=== PATIENT | male | born 1995 | race Two or more races ===

== ENCOUNTER 2016-08-21 00:23 | Emergency (ER) | payer OTHER ==
[2016-08-21 00:28] VITALS: BP 113/64; PULSE 74; RESP 16; TEMP 98.2; O2SAT 98
--- NOTE | 2016-08-21 01:05 | EDPHY ---
H & P Stated Complaint: L foot/toes injured playing soccer Time Seen by Provider: 08/21/16 00:55 HPI/ROS: CHIEF COMPLAINT: Toe pain HISTORY OF PRESENT ILLNESS: Patient is a 20-year-old man who comes to the emergency department complaining of pain in the 2nd toe on his left foot. He states that he is playing soccer and noticed afterwards that he had pain there. He has been able to ambulate. He denies ankle or leg injury otherwise. No significant past medical history. REVIEW OF SYSTEMS: Constitutional: denies: chills, fever, recent illness, recent injury EENTM: denies: blurred vision, double vision, nose congestion Respiratory: denies: cough, shortness of breath Cardiac: denies: chest pain, irregular heart rate, lightheadedness, palpitations Gastrointestinal/Abdominal: denies: abdominal pain, diarrhea, nausea, vomiting, blood streaked stools Genitourinary: denies: dysuria, frequency, hematuria, pain Musculoskeletal: See HPI Skin: denies: lesions, rash, jaundice, bruising Neurological: denies: headache, numbness, paresthesia, tingling, dizziness, weakness Hematologic/Lymphatic: denies: blood clots, easy bleeding, easy bruising Immunologic/allergic: denies: HIV/AIDS, transplant EXAM: GENERAL: Well-appearing, well-nourished and in no acute distress. HEAD: Atraumatic, normocephalic. EYES: Pupils equal round and reactive to light, extraocular movements intact, sclera anicteric, conjunctiva are normal. ENT: TMs normal, nares patent, oropharynx clear without exudates. Moist mucous membranes. NECK: Normal range of motion, supple without lymphadenopathy or JVD. LUNGS: Breath sounds clear to auscultation bilaterally and equal. No wheezes rales or rhonchi. HEART: Regular rate and rhythm without murmurs, rubs or gallops. ABDOMEN: Soft, nontender, normoactive bowel sounds. No guarding, no rebound. No masses appreciated. BACK: No CVA tenderness, no spinal tenderness, step-offs or deformities EXTREMITIES: Left 2nd toe with mild swelling and bruising around the proximal phalanx. Normal range of motion. Normal sensation NEUROLOGICAL: Cranial nerves II through XII grossly intact. Normal speech, normal gait. 5/5 strength, normal movement in all extremities, normal sensation PSYCH: Normal mood, normal affect. SKIN: Warm, dry, normal turgor, no visible rashes or lesions. Source: Patient Exam Limitations: No limitations - Personal History Current Tetanus/Diphtheria Vaccine: Yes Tetanus Vaccine Date: < 10 years - Medical/Surgical History Hx Asthma: Yes Hx Chronic Respiratory Disease: No Hx Diabetes: No Hx Cardiac Disease: No Hx Renal Disease: No Hx Cirrhosis: No Hx Alcoholism: No Hx HIV/AIDS: No Hx Splenectomy or Spleen Trauma: No Other PMH: PMHx: Head injury. PSHx: denies - Family History Significant Family History: No pertinent family hx - Social History Smoking Status: Current every day smoker Alcohol Use: Sober Drug Use: None Constitutional: Initial Vital Signs Temperature (C) 36.8 C 08/21/16 00:25 Heart Rate 74 08/21/16 00:25 Respiratory Rate 16 08/21/16 00:25 Blood Pressure 113/64 08/21/16 00:25 O2 Sat (%) 98 08/21/16 00:25 O2 Delivery Mode Room Air Allergies/Adverse Reactions: No Known Allergies Allergy (Verified 02/25/16 02:57) Home Medications: Medication Instructions Recorded NK [No Known Home Meds] 02/25/16 Medical Decision Making - Diagnostics Imaging Results: X-ray: Foot x-ray was obtained. I viewed the images myself on the PACS system. My interpretation of the images is: Negative. The radiologist interpretation is [pending]. Imaging: I viewed and interpreted images myself Procedures: Procedure: Splint placement. A postop shoe splint was applied. After application of the splint I returned and re-examined the patient. The splint was adequately immobilizing the joint and distal to the splint the patient's circulation and sensation was intact. ED Course/Re-evaluation: We discussed the x-ray results. Patient is relieved. He was placed in a postop shoe and we discussed pain control and rest. Differential Diagnosis: Partial list of the Differential diagnosis considered include but were not limited to; foot fracture, contusion and although unlikely based on the history and physical exam, I also considered nerve injury, vascular injury, tendon injury. I discussed these differential diagnoses and the plan with the patient as well as the usual and expected course. The patient understands that the diagnosis is provisional and that in medicine we are not always correct and that further workup is often warranted. Usual and customary warnings were given. All of the patient's questions were answered. The patient was instructed to return to the emergency department should the symptoms at all worsen or return, otherwise to followup with the physician as we discussed. Departure - Departure Disposition: Home, Routine, Self-Care Clinical Impression: Contusion, toe Qualifiers: Encounter type: initial encounter Toe: lesser toe Damage to nail status: without damage Laterality: left Qualified Code(s): S90.122A - Contusion of left lesser toe(s) without damage to nail, initial encounter Condition: Fair Instructions: Foot Contusion (ED) Referrals: NONE *PRIMARY CARE P,. [Primary Care Provider] - As per Instructions Missy Rosado DO [Doctor of Osteopathy] - As per Instructions
== END 2016-08-21 01:18 | disposition home or self-care (01) ==
DX: S90.122A Contusion of left lesser toe(s) without damage to nail, initial encounter (principal); J45.909 Unspecified asthma, uncomplicated; F17.200 Nicotine dependence, unspecified, uncomplicated; X58.XXXA Exposure to other specified factors, initial encounter; Y99.8 Other external cause status; Y93.66 Activity, soccer
CPT/HCPCS: L3260

== ENCOUNTER 2016-09-25 22:10 | Emergency (ER) | payer OTHER ==
[2016-09-25 22:15] VITALS: RESP 16; TEMP 98.8
[2016-09-25] MEDS ORDERED: PROPARACAINE 0.5% 15 ML OPHT DROP ONE (22:39)
[2016-09-25] MEDS ORDERED: FLUORESCEIN SODIUM 1 MG STRIP OP ONE (22:39)
--- NOTE | 2016-09-25 22:55 | EDPHY ---
H & P Stated Complaint: L eye irritation; kidney pain Time Seen by Provider: 09/25/16 22:39 HPI/ROS: HPI The patient presents with left eye pain which has been present since 3:00 a.m. this morning. He was out with friends and went to a store with cats. [place] as if something got into his left eye. He has had pain ever since which is worse when he opens his eye and improved when he closes it. It feels like a burning sort of a pain. His eye feels itchy and he has had tearing of the eye which is clear. He has noticed some redness of his eye but has not had any changes in his vision or photophobia. He has history of similar about 2 years ago which improved on its own. He is also complaining of left-sided flank pain which began after drinking a lot of alcohol. He had limited urine output for few days, however now feels much better. He does not have any dysuria, hematuria. REVIEW OF SYSTEMS Constitutional: No fever, no chills. Eyes: No discharge. ENT: No sore throat. Cardiovascular: No chest pain, no palpitations. Respiratory: No cough, no shortness of breath. Gastrointestinal: No abdominal pain, no vomiting. Genitourinary: No hematuria. Musculoskeletal: No back pain. Skin: No rashes. Neurological: No headache. PMHx: Healthy Soc Hx: College student PHYSICAL General Appearance: Alert, no distress Eyes: Pupils equal and round no pallor or injection EYE EXAM Visual Acuity: noted from Nurse's notes. Pupils: equal round and reactive to light EOMI Skin: no proptosis, no periorbital erythema or swelling, no vesicles Upper inner eyelid is slightly erythematous Conjunctivae: Slightly injected, no discharge Cornea: exam with fluoroscein shows no staining Anterior chamber:normal, no hyphema or hypopyon ENT, Mouth: Mucous membranes moist Respiratory: There are no retractions, lungs are clear to auscultation Cardiovascular: Regular rate and rhythm Gastrointestinal: Abdomen is soft and non-tender, no masses, bowel sounds normal Neurological: A&O, moves all extremities Skin: Warm and dry, no rashes Musculoskeletal: Neck is supple non tender Extremities: symmetrical, full range of motion Psychiatric: Patient is oriented X 3, there is no agitation Source: Patient Exam Limitations: No limitations - Personal History Current Tetanus/Diphtheria Vaccine: Yes Tetanus Vaccine Date: < 10 years - Medical/Surgical History Hx Asthma: Yes Hx Chronic Respiratory Disease: No Hx Diabetes: No Hx Cardiac Disease: No Hx Renal Disease: No Hx Cirrhosis: No Hx Alcoholism: No Hx HIV/AIDS: No Hx Splenectomy or Spleen Trauma: No Other PMH: PMHx: Head injury. PSHx: denies - Social History Smoking Status: Current every day smoker Constitutional: Initial Vital Signs Temperature (C) 37.1 C 09/25/16 22:13 Heart Rate 88 09/25/16 22:13 Respiratory Rate 16 09/25/16 22:13 Blood Pressure 111/62 09/25/16 22:13 O2 Sat (%) 97 09/25/16 22:13 O2 Delivery Mode Room Air Allergies/Adverse Reactions: No Known Allergies Allergy (Verified 02/25/16 02:57) Home Medications: Medication Instructions Recorded Polyvinyl Alcohol [Artificial 15 ml OP QID #1 drops 09/25/16 Tears] Medical Decision Making Differential Diagnosis: This is a 20-year-old male who presents with left eye pain for the last 1 day. He thinks he is allergic to cats and was exposed. On exam, he has normal visual acuity, no visual changes, conjunctiva are injected. Differential diagnosis includes acute conjunctivitis, allergic verses less likely bacterial given no concerning drainage. Iritis less likely given normal anterior chamber. Corneal abrasion less likely given no fluorescein staining. I plan to treat him as allergic conjunctivitis with artificial tears, cool compresses, ophthalmology follow-up as needed. Patient also is complaining of left-sided flank pain and is concerned about his kidney. He is able to urinate without difficulty, however recently had a alcohol drinking binge. Plan to check UA. The patient was unable to provide a urine specimen while in the emergency room. I explained to him we cannot evaluate his kidney pain without this. He said he would still like to go. I plan to discharge him and he is to return if he has continued pain. Departure - Departure Disposition: Home, Routine, Self-Care Clinical Impression: Conjunctivitis Condition: Good Instructions: Conjunctivitis (ED) Additional Instructions: It appears your eye is bothering you because of allergies. You should use cold compresses on your eye several times a day. You should not rub your eyes. You can use the artificial tears as needed to help. I have given you a referral for the community health specialist. You should call for an appointment if you are not better in 1-2 days. Referrals: Alexandro Kirby MD [Medical Doctor] - As per Instructions Prescriptions: Polyvinyl Alcohol [Artificial Tears] 15 ml OP QID #1 drops
[2016-09-25 23:51] VITALS: BP 110/80; PULSE 81; O2SAT 95
== END 2016-09-25 23:51 | disposition home or self-care (01) ==
DX: H10.9 Unspecified conjunctivitis (principal); F17.200 Nicotine dependence, unspecified, uncomplicated; J45.909 Unspecified asthma, uncomplicated

== ENCOUNTER 2016-10-17 23:01 | Emergency (ER) | payer OTHER ==
[2016-10-17 23:44] LABS: COLOR YELLOW; LEUKOCYTE ESTERASE,URINE NEGATIVE (NEGATIVE); NITRITE,URINE NEGATIVE (NEGATIVE)
[2016-10-17 23:49] LABS: BACTERIA TRACE /hpf (NONE SEEN); MUCUS 4+ /lpf (NONE-1+)
[2016-10-18 00:40] LABS: ANION GAP 12 mEq/L (8-16); CALCIUM 10.2 mg/dL (8.5-10.4); CARBON DIOXIDE 23 mEq/l (22-31); CHLORIDE 109 mEq/L (97-110); CREATININE 0.9 mg/dL (0.7-1.3); GLOMERULAR FILTRATION RATE > 60; GLUCOSE 81 mg/dL (70-100); POTASSIUM 4.1 mEq/L (3.5-5.2); SODIUM 144 mEq/L (134-144)
[2016-10-18 00:54] LABS: % IMMATURE GRANULYOCYTES 0.3 % (0.0-1.1); ABSOLUTE IMMATURE GRANULOCYTES 0.03 10^3/uL (0.00-0.10); ADD DIFF? NO; ADD MORPH? NO; ADD SCAN? NO; ATYPICAL LYMPHOCYTE FLAG 0 (0-99); FRAGMENT RBC FLAG 0 (0-99); HEMATOCRIT 50.6 % (40.0-51.0); HEMOGLOBIN 17.4 g/dL (13.7-17.5); LEFT SHIFT FLG 0 (0-99); LIPEMIA HEMOLYSIS FLAG 90 (0-99); MEAN CELL HEMOGLOBIN 30.8 pg (27.9-34.1); MEAN CELL HEMOGLOBIN CONCENTR. 34.4 g/dL (32.4-36.7); MEAN CELL VOLUME 89.6 fL (81.5-99.8); MEAN PLATELET VOLUME 9.8 fL (8.7-11.7); PLATELET CLUMPS FLAG 0 (0-99); PLATELET COUNT 333 10^3/uL (150-400); RED BLOOD CELL COUNT 5.65 10^6/uL (4.40-6.38); RED CELL DISTRIBUTION WIDTH 12.7 % (11.5-15.2)
--- NOTE | 2016-10-18 01:47 | EDPHY ---
H & P Stated Complaint: RLQ abd pain x3 days Time Seen by Provider: 10/18/16 01:31 HPI/ROS: HPI The patient presents with right-sided groin and right lower quadrant pain which has been present for the last 3 days which is worse with walking and improved with rest. It does not radiate. It is sharp in nature. He does not have any associated diarrhea, constipation, fever or chills. He does report 1 episode of vomiting this morning. He does not have any testicular pain or penile pain or discharge.. REVIEW OF SYSTEMS Constitutional: No fever, no chills. Eyes: No discharge. ENT: No sore throat. Cardiovascular: No chest pain, no palpitations. Respiratory: No cough, no shortness of breath. Gastrointestinal: See HPI Genitourinary: No hematuria. Musculoskeletal: No back pain. Skin: No rashes. Neurological: No headache. PMHx: Asthma Soc Hx: College student PHYSICAL General Appearance: Alert, no distress Eyes: Pupils equal and round no pallor or injection ENT, Mouth: Mucous membranes moist Respiratory: There are no retractions, lungs are clear to auscultation Cardiovascular: Regular rate and rhythm Gastrointestinal: Abdomen is soft and non-tender, no masses, bowel sounds normal : Small defect felt in right inguinal region without any tenderness, testicles nontender bilaterally Neurological: A&O, moves all extremities Skin: Warm and dry, no rashes Musculoskeletal: Neck is supple non tender Extremities: symmetrical, full range of motion Psychiatric: Patient is oriented X 3, there is no agitation Source: Patient Exam Limitations: No limitations - Personal History Current Tetanus Diphtheria and Acellular Pertussis (TDAP): Unsure Tetanus Vaccine Date: < 10 years - Medical/Surgical History Hx Asthma: Yes Hx Chronic Respiratory Disease: No Hx Diabetes: No Hx Cardiac Disease: No Hx Renal Disease: No Hx Cirrhosis: No Hx Alcoholism: No Hx HIV/AIDS: No Hx Splenectomy or Spleen Trauma: No Other PMH: asthma - Social History Smoking Status: Current every day smoker Constitutional: Initial Vital Signs Temperature (C) 36.8 C 10/17/16 23:03 Heart Rate 92 10/17/16 23:03 Respiratory Rate 18 10/17/16 23:03 Blood Pressure 122/79 H 10/17/16 23:03 O2 Sat (%) 98 10/17/16 23:03 O2 Delivery Mode Room Air Allergies/Adverse Reactions: No Known Allergies Allergy (Verified 02/25/16 02:57) Home Medications: Medication Instructions Recorded Albuterol 10/17/16 Medical Decision Making Differential Diagnosis: This is a 21-year-old male who is healthy who comes in with 3 days of right lower quadrant and right groin pain it is intermittent. No prior history of similar. No real associated symptoms. On exam, he does not have any right lower quadrant tenderness. He does have some tenderness in his inguinal region without any lymphadenopathy. exam does reveal a very small defect in his inguinal canal concerning for inguinal hernia. I will refer him to General surgery as an outpatient for further evaluation. I do not believe he needs workup for appendicitis at this time given no tenderness in the right lower quadrant. Differential diagnosis includes inguinal hernia, incarcerated inguinal hernia, appendicitis, inguinal lymphadenopathy. - Data Points Laboratory Results: Laboratory Results 10/17/16 23:20 10/17/16 23:20 10/17/16 10/17/16 10/17/16 23:30 23:20 23:20 WBC 10.19 10^3/uL H 10^3/uL (3.80-9.50) RBC 5.65 10^6/uL 10^6/uL (4.40-6.38) Hgb 17.4 g/dL g/dL (13.7-17.5) Hct 50.6 % % (40.0-51.0) MCV 89.6 fL fL (81.5-99.8) MCH 30.8 pg pg (27.9-34.1) MCHC 34.4 g/dL g/dL (32.4-36.7) RDW 12.7 % % (11.5-15.2) Plt Count 333 10^3/uL 10^3/uL (150-400) MPV 9.8 fL fL (8.7-11.7) Neut % (Auto) 60.4 % % (39.3-74.2) Lymph % (Auto) 30.4 % % (15.0-45.0) [place] % (Auto) 6.9 % % (4.5-13.0) Eos % (Auto) 1.3 % % (0.6-7.6) Baso % (Auto) 0.7 % % (0.3-1.7) Nucleat RBC Rel Count 0.0 % % (0.0-0.2) Absolute Neuts (auto) 6.16 10^3/uL 10^3/uL (1.70-6.50) Absolute Lymphs (auto) 3.10 10^3/uL H 10^3/uL (1.00-3.00) Absolute Monos (auto) 0.70 10^3/uL 10^3/uL (0.30-0.80) Absolute Eos (auto) 0.13 10^3/uL 10^3/uL (0.03-0.40) Absolute Basos (auto) 0.07 10^3/uL 10^3/uL (0.02-0.10) Absolute Nucleated RBC 0.00 10^3/uL 10^3/uL (0-0.01) Immature Gran % 0.3 % % (0.0-1.1) Immature Gran # 0.03 10^3/uL 10^3/uL (0.00-0.10) Sodium 144 mEq/L mEq/L (134-144) Potassium 4.1 mEq/L mEq/L (3.5-5.2) Chloride 109 mEq/L mEq/L (97-110) Carbon Dioxide 23 mEq/l mEq/l (22-31) Anion Gap 12 mEq/L mEq/L (8-16) BUN 8 mg/dL mg/dL (7-23) Creatinine 0.9 mg/dL mg/dL (0.7-1.3) Estimated GFR > 60 Glucose 81 mg/dL mg/dL (70-100) Calcium 10.2 mg/dL mg/dL (8.5-10.4) Urine Color YELLOW Urine Appearance CLEAR Urine pH 5.0 (5.0-7.5) Ur Specific [place] 1.024 (1.002-1.030) Urine Protein 1+ H (NEGATIVE) Urine Ketones NEGATIVE (NEGATIVE) Urine Blood NEGATIVE (NEGATIVE) Urine Nitrate NEGATIVE (NEGATIVE) Urine Bilirubin NEGATIVE (NEGATIVE) Urine Urobilinogen NEGATIVE EU EU (0.2-1.0) Ur Leukocyte Esterase NEGATIVE (NEGATIVE) Urine RBC 1-3 /hpf /hpf (0-3) Urine WBC 1-3 /hpf /hpf (0-3) Ur Epithelial Cells TRACE /lpf /lpf (NONE-1+) Urine Bacteria TRACE /hpf H /hpf (NONE SEEN) Urine Mucus 4+ /lpf H /lpf (NONE-1+) Urine Sperm PRESENT /hpf /hpf (NONE SEEN) Urine Glucose NEGATIVE (NEGATIVE) Departure - Departure Disposition: Home, Routine, Self-Care Clinical Impression: RLQ abdominal pain Condition: Good Instructions: Acute Abdominal Pain (ED) Additional Instructions: The cause of your abdominal pain is not entirely clear. You should return to the emergency room if you are worse in any way, develops vomiting, fever, more pain, because you may have early appendicitis. Your pain could also be coming from a small inguinal hernia. Because of this, I have given you the information for Dr. Olivia for surgical follow-up. Referrals: Teofilo Olivia MD [Medical Doctor] - As per Instructions
[2016-10-18 01:54] VITALS: BP 121/72; PULSE 77; RESP 16; TEMP 98.1; O2SAT 97
== END 2016-10-18 01:55 | disposition home or self-care (01) ==
DX: R10.31 Right lower quadrant pain (principal); J45.909 Unspecified asthma, uncomplicated; F17.200 Nicotine dependence, unspecified, uncomplicated

== ENCOUNTER 2017-05-03 07:10 | Emergency (ER) | payer OTHER ==
[2017-05-03 07:15] VITALS: BP 139/74; PULSE 95; RESP 16; TEMP 98.6; O2SAT 96
--- NOTE | 2017-05-03 07:26 | EDPHY ---
H & P Stated Complaint: injury to right wrist and thumb Time Seen by Provider: 05/03/17 07:16 HPI/ROS: CHIEF COMPLAINT: Right wrist pain HISTORY OF PRESENT ILLNESS: The patient presents to the ED with complaints of right wrist pain following a mechanical fall that occurred last night. The patient complains of pain in the snuffbox. He denies any associated numbness or weakness. The patient denies any additional injury. He has moderate pain worsened with palpation and attempted movement. REVIEW OF SYSTEMS: A comprehensive 10 point review of systems is otherwise negative aside from elements mentioned in the history of present illness. Source: Patient Exam Limitations: No limitations - Personal History Current Tetanus Diphtheria and Acellular Pertussis (TDAP): Yes Tetanus Vaccine Date: < 10 years - Medical/Surgical History Hx Asthma: Yes Hx Chronic Respiratory Disease: No Hx Diabetes: No Hx Cardiac Disease: No Hx Renal Disease: No Hx Cirrhosis: No Hx Alcoholism: No Hx HIV/AIDS: No Hx Splenectomy or Spleen Trauma: No Other PMH: asthma - Social History Smoking Status: Current every day smoker - Physical Exam Exam: General Appearance: Alert, no distress Neck: Nontender, trachea midline Respiratory: No chest wall tender, subcutaneous air, lungs clear bilaterally Cardiovascular: Regular rate and rhythm Abdomen: Abdomen is soft and nontender, pelvis stable Skin: No lacerations, No abrasion Extremities: Tenderness to palpation right anatomic snuffbox Neurological: 5/5 strength noted in the right upper extremity, normal sensory exam Constitutional: Initial Vital Signs Temperature (C) 37 C 05/03/17 07:11 Heart Rate 95 05/03/17 07:11 Respiratory Rate 16 05/03/17 07:11 Blood Pressure 139/74 H 05/03/17 07:11 O2 Sat (%) 96 05/03/17 07:11 O2 Delivery Mode Room Air Allergies/Adverse Reactions: No Known Allergies Allergy (Verified 02/25/16 02:57) Home Medications: Medication Instructions Recorded Albuterol 10/17/16 Medical Decision Making - Diagnostics Imaging Results: Right wrist x-ray: Images reviewed by myself, negative for acute fracture ED Course/Re-evaluation: The patient presents to the ED with right wrist pain and tenderness in the anatomic snuffbox. He has been placed in a thumb spica splint. He has been instructed to follow up with Orthopedic surgery for any persistent pain or tenderness past 3-5 days as this may be the sign of an undiagnosed fracture. Differential Diagnosis: Differential diagnosis considered includes fracture, sprain, dislocation Departure - Departure Disposition: Home, Routine, Self-Care Clinical Impression: Right wrist sprain Condition: Good Instructions: Musculoskeletal Pain (ED) Additional Instructions: 1. Wear wrist splint as needed for comfort. 2. Take Ibuprofen or Motrin 600 mg by mouth three times a day. 3. Please follow up with the orthopedic surgeon you have been referred to for any persistent wrist pain, swelling or immobility as this may be the sign of fracture not noted on the x-ray today. Referrals: Dilip Burgess MD [Medical Doctor] - As per Instructions
== END 2017-05-03 07:45 | disposition home or self-care (01) ==
DX: S63.501A Unspecified sprain of right wrist, initial encounter (principal); J45.909 Unspecified asthma, uncomplicated; F17.200 Nicotine dependence, unspecified, uncomplicated; W18.39XA Other fall on same level, initial encounter
CPT/HCPCS: L3908

== ENCOUNTER 2017-07-29 01:23 | Emergency (ER) | payer OTHER ==
[2017-07-29 01:27] VITALS: BP 132/69
--- NOTE | 2017-07-29 01:34 | EDPHY ---
H & P Stated Complaint: r eye swelling Time Seen by Provider: 07/29/17 01:34 HPI/ROS: HPI CHIEF COMPLAINT: Right upper eyelid swelling. HISTORY OF PRESENT ILLNESS: Patient very pleasant 21-year-old male, denies having any significant medical history presents emergency room with right upper eyelid swelling and some drainage. States been present for 48 hr. No trouble with his vision. No eye pain. No fever. States he has never had this before. The upper eyelid of the right eye is been increasingly getting swollen. No fever. No orbital cellulitis on exam. The inflammation is located to the right upper eyelid. Appears to be a blepharitis. I do not appreciate a chalazion or hordeolum. Past Medical History: Denies medical history Past Surgical History: He denies surgical history Social History: Smokes tobacco daily. Denies alcohol or drugs. Family History: Noncontributory ROS REVIEW OF SYSTEMS: A comprehensive 10 point review of systems is otherwise negative aside from elements mentioned in the history of present illness. Exam Constitutional appears well nontoxic no acute distress, triage nursing summary reviewed, vital signs reviewed, awake/alert. Eyes normal conjunctivae and sclera, EOMI, PERRLA. Both globes are intact. No evidence of injected conjunctiva, on the right upper eyelid is swollen and erythematous. There is no nimisha pus. No chalazeon on or hordeolum. Appears to be a blepharitis. No proptosis. Extraocular movement intact. HENT normal inspection, atraumatic, moist mucus membranes, no epistaxis, neck supple/ no meningismus, no raccoon eyes. Respiratory clear to auscultation bilaterally, normal breath sounds, no respiratory distress, no wheezing. Cardiovascular rate normal, regular rhythm, no murmur, no edema, distal pulses normal. Gastrointestinal soft, non-tender, no rebound, no guarding, normal bowel sounds, no distension, no pulsatile mass. Genitourinary no CVA tenderness. Musculoskeletal no midline vertebral tenderness, full range of motion, no calf swelling, no tenderness of extremities, no meningismus, good pulses, neurovascularly intact. Skin pink, warm, & dry, no rash, skin atraumatic. Neurologic awake, alert and oriented x 3, AAOx3, moves all 4 extremities equally, motor intact, sensory intact, CN II-XII intact, normal cerebellar, normal vision, normal speech. Psychiatric normal mood/affect. Heme/Lymph/Immune no lymphadenopathy. Differential Diagnosis: Includes but is not limited to in a particular order upper eyelid infection, early gland obstruction, hordeolum, chalezeon, blepharitis Medical Decision Making: Plan for this patient recommend warm compresses 2 to 3 times a day, oral doxycycline, and erythromycin ointment. Close follow-up with Ophthalmology. Understands call Ophthalmology for follow-up appointment. Additionally return precautions discussed understands return emergency room if there is any worsening symptoms questions or concerns. This includes worsening pain, swelling, fever. Understands refrain from smoking Understands not to rub or touch his eye. Warm compresses. Antibiotics as prescribed Source: Patient - Personal History Current Tetanus Diphtheria and Acellular Pertussis (TDAP): Yes Tetanus Vaccine Date: < 10 years - Medical/Surgical History Hx Asthma: Yes Hx Chronic Respiratory Disease: No Hx Diabetes: No Hx Cardiac Disease: No Hx Renal Disease: No Hx Cirrhosis: No Hx Alcoholism: No Hx HIV/AIDS: No Hx Splenectomy or Spleen Trauma: No Other PMH: asthma - Social History Smoking Status: Current every day smoker Constitutional: Initial Vital Signs Temperature (C) 36.4 C 07/29/17 01:25 Heart Rate 79 07/29/17 01:25 Respiratory Rate 16 07/29/17 01:25 Blood Pressure 132/69 H 07/29/17 01:25 O2 Sat (%) 99 07/29/17 01:25 O2 Delivery Mode Room Air Allergies/Adverse Reactions: No Known Allergies Allergy (Verified 02/25/16 02:57) Home Medications: Medication Instructions Recorded Albuterol 10/17/16 Doxycycline Hyclate 100 mg PO BID #14 tablet 07/29/17 Erythromycin 0.5% 3.5 gm OP BID #1 opht.oint 07/29/17 Departure - Departure Disposition: Home, Routine, Self-Care Clinical Impression: Blepharitis Qualifiers: Blepharitis type: unspecified type Laterality: right Eyelid: upper Qualified Code(s): H01.001 - Unspecified blepharitis right upper eyelid Condition: Good Instructions: Blepharitis (ED) Additional Instructions: 1. Stop smoking. 2. Warm compresses 2 to 3 times a day. 3. Do not touch rub your eye. 4. Oral antibiotics as prescribed. 5. Erythromycin ointment as prescribed. 6. Follow up with Ophthalmology. Referrals: NONE *PRIMARY CARE P,. [Primary Care Provider] - As per Instructions Prescriptions: Doxycycline Hyclate 100 mg PO BID #14 tablet Erythromycin 0.5% 3.5 gm OP BID #1 opht.oint
[2017-07-29] MEDS ORDERED: DOXYCYCLINE HYCLATE 100 MG CAP/TAB PO ONE (02:10)
== END 2017-07-29 02:18 | disposition home or self-care (01) ==
DX: H01.001 Unspecified blepharitis right upper eyelid (principal); J45.909 Unspecified asthma, uncomplicated; F17.200 Nicotine dependence, unspecified, uncomplicated

== ENCOUNTER 2017-08-01 22:45 | Emergency (ER) | payer OTHER ==
[2017-08-01 22:49] VITALS: BP 142/64
--- NOTE | 2017-08-01 23:00 | EDPHY ---
H & P Time Seen by Provider: 08/01/17 22:51 HPI/ROS: CHIEF COMPLAINT: Bilateral eyelid redness and swelling HISTORY OF PRESENT ILLNESS: 21-year-old immunocompetent male no contact lens use seen emergency department 3 days ago for right upper eyelid swelling, diagnosed with blepharitis, prescribed erythromycin ointment, doxycycline orally , returns to the ER complaining of continued right eyelid symptoms as well as new left eyelid symptoms. He did not feels prescriptions noted that he lost all his paperwork including prescriptions. He denies: Photophobia, exposure to high speed projectiles, pain with extraocular movements, visual acuity changes, headache, nausea, vomiting, malaise, fever, chills PHYSICAL EXAM (Prior to examination, patient consented to physical exam, hands were washed and my usual and customary physical exam procedures followed) 1) GENERAL: Well-developed, well-nourished, alert and oriented. Appears to be in no acute distress. 2) HEAD: Normocephalic 3) HEENT: sclera anicteric bilaterally. No injection bilaterally. Bilateral lids are erythematous, swollen, tender. No proptosis. Extraocular movements are intact and are pain-free. No periorbital erythema or induration. No facial vesicles. 4) LUNGS: Breathing comfortably. Smoking Status: Current every day smoker Constitutional: Initial Vital Signs Temperature (C) 37.1 C 08/01/17 22:47 Heart Rate 88 08/01/17 22:47 Respiratory Rate 18 08/01/17 22:47 Blood Pressure 142/64 H 08/01/17 22:47 O2 Sat (%) 97 08/01/17 22:47 O2 Delivery Mode Room Air Allergies/Adverse Reactions: No Known Allergies Allergy (Verified 08/01/17 22:49) Home Medications: Medication Instructions Recorded Albuterol 10/17/16 Doxycycline Hyclate 100 mg PO BID #14 tablet 07/29/17 Erythromycin 0.5% 3.5 gm OP BID #1 opht.oint 07/29/17 Doxycycline Hyclate 100 mg PO BID 7 Days capsule 08/01/17 Erythromycin 0.5% 3.5 gm OP BID #1 opht.oint 08/01/17 MDM/Departure - MDM ED Course/Re-evaluation: Old medical records reviewed. Stressed the importance of follow-up with Ophthalmology.. Stressed the importance of getting his prescriptions filled for doxycycline and erythromycin ointment. Spent greater than 3 min discussing tobacco smoking cessation. Doubt periorbital or orbital cellulitis. Doubt conjunctivitis. Care of patient under supervision of secondary supervising physician Dr Mtz . - Depart Disposition: Home, Routine, Self-Care Clinical Impression: Blepharitis of both eyes Qualifiers: Blepharitis type: unspecified type Eyelid: upper Qualified Code(s): H01.001 - Unspecified blepharitis right upper eyelid; H01.004 - Unspecified blepharitis left upper eyelid; H01.004 - Unspecified blepharitis left upper eyelid Condition: Good Instructions: Blepharitis (ED) Additional Instructions: Please take your medications as prescribed. Please stop smoking. Return to the ER if you develop pain with eye movement, discharge from your eyes, or any other symptoms that concern you. Prescriptions: Doxycycline Hyclate 100 mg PO BID 7 Days capsule Erythromycin 0.5% 3.5 gm OP BID #1 opht.oint Referrals: Alexandro Kirby MD [Medical Doctor] - As per Instructions
== END 2017-08-01 23:09 | disposition home or self-care (01) ==
DX: H01.001 Unspecified blepharitis right upper eyelid (principal); H01.004 Unspecified blepharitis left upper eyelid; F17.200 Nicotine dependence, unspecified, uncomplicated

== ENCOUNTER 2017-09-16 16:27 | Emergency (ER) | payer OTHER ==
[2017-09-16 16:32] VITALS: BP 112/74
--- NOTE | 2017-09-16 16:35 | EDPHY ---
H & P Stated Complaint: r lower molar tooth pain Time Seen by Provider: 09/16/17 16:34 HPI/ROS: HPI: This is a 21-year-old male who presents with Chief Complaint: r lower molar tooth pain Location: Right lower molar Quality: Pain Duration: 6 hr Signs and Symptoms: no fever, no nausea, no vomiting, no photophobia, no noise sensitivity, no neck stiffness, no ear pain, no tinnitus, no nasal congestion, no sinus pressure, no weakness, no radiation, no aura, no facial swelling Timing: Acute on chronic Severity: 10/26 Context: Patient reports that he has poor dentition and complains of 6 hr history right lower molar pain in 3 of the teeth that he has had extracted in the past. He has not tried [id number] Tylenol and/or ibuprofen. He smokes cigarettes daily. He reports that he does not like to go to the dentist and has avoided going but will call on Sunday to make an appointment. Modifying Factors: None Comment: ROS: see HPI Constitutional: No fever, no chills, no weight loss Eyes: No blurred vision Respiratory: No shortness of breath, no cough Cardiovascular: No chest pain, no palpitations Gastrointestinal: No nausea, no vomiting, no diarrhea, no hematemesis, no blood in stool Genitourinary: No dysuria, no blood in urine Extremities: No myalgias, no edema Neurologic: No weakness, no numbness Skin: No rashes, no petechiae Hematologic: No bruising, no bleeding MEDICAL/SURGICAL/SOCIAL HISTORY: Medical history: Asthma Surgical history: Denies Social history: Current every day smoker. Family history noncontributory. CONSTITUTIONAL: Nontoxic-appearing adult male, awake and alert, no obvious distress HEENT: Atraumatic and normocephalic, PERRL, EOMI. Nares patent; no rhinorrhea; no nasal mucosal edema. Tympanic membranes clear. Oropharynx clear, no exudate and moist pink mucosa. Airway patent. No lymphadenopathy. No meningismus. No facial swelling. Poor dentition. No gingival erythema/ fluctuant. Cardiovascular: Normal S1/S2, regular rate, regular rhythm, without murmur rub or gallop. PULMONARY/CHEST: Symmetrical and nontender. Clear to auscultation bilaterally. Good air movement. No accessory muscle usage. ABDOMEN: Soft, nondistended, nontender, no rebound, no guarding, no peritoneal signs, no masses or organomegaly. No CVAT. EXTREMITIES: 2/2 pulses, strength 5/5, no deformities, no clubbing, no cyanosis or edema. NEUROLOGICAL: no focal neuro deficits. GCS 15. SKIN: Warm and dry, no erythema. no rash. Good capillary refill. Source: Patient Exam Limitations: No limitations - Personal History Current Tetanus Diphtheria and Acellular Pertussis (TDAP): Yes Tetanus Vaccine Date: < 10 years - Medical/Surgical History Hx Asthma: Yes Hx Chronic Respiratory Disease: No Hx Diabetes: No Hx Cardiac Disease: No Hx Renal Disease: No Hx Cirrhosis: No Hx Alcoholism: No Hx HIV/AIDS: No Hx Splenectomy or Spleen Trauma: No Other PMH: asthma - Social History Smoking Status: Current every day smoker Constitutional: Initial Vital Signs Temperature (C) 36.6 C 09/16/17 16:30 Heart Rate 74 09/16/17 16:30 Respiratory Rate 16 09/16/17 16:30 Blood Pressure 112/74 09/16/17 16:30 O2 Sat (%) 98 09/16/17 16:30 O2 Delivery Mode Room Air Allergies/Adverse Reactions: No Known Allergies Allergy (Verified 09/16/17 16:28) Home Medications: Medication Instructions Recorded Albuterol 10/17/16 Penicillin V Potassium [Penicillin 500 mg PO Q6 7 Days tablet 09/16/17 VK] Medical Decision Making ED Course/Re-evaluation: No signs of airway compromise, facial cellulitis, dental abscess. Patient offered dental block and he adamantly declined as"I am afraid of needles." Patient is requesting Percocet. I advised the patient that he can take Tylenol or ibuprofen. Patient reports that he is going to call his dentist on Sunday. Given a prescription for penicillin. This patient was seen under the supervision of my secondary supervising physician. I evaluated care for this patient independently. Discussed this patient with Dr. Mooney. Differential Diagnosis: Differential diagnosis includes but is not limited to tooth fracture, 2 subluxation, tooth avulsion, dental abscess. Departure - Departure Disposition: Home, Routine, Self-Care Clinical Impression: Toothache, Tobacco user Condition: Good Instructions: Toothache (ED) Additional Instructions: Please stop smoking cigarettes. Take Tylenol 650 mg every 4 hours and/or Ibuprofen 600 mg every 8 hours with food as needed for pain. Eat a soft diet until tooth pain has resolved. Follow-up with dentist on Sunday. Take antibiotic as prescribed. If you are unable to get into a dentist early next week, you may call dental aide at [phone] make a follow-up appointment. Referrals: [facility],. [Medical Technician] - As per Instructions Prescriptions: Penicillin V Potassium [Penicillin VK] 500 mg PO Q6 7 Days tablet
== END 2017-09-16 16:52 | disposition home or self-care (01) ==
DX: K08.89 Other specified disorders of teeth and supporting structures (principal); J45.909 Unspecified asthma, uncomplicated; F17.200 Nicotine dependence, unspecified, uncomplicated

== ENCOUNTER 2017-11-21 02:25 | Emergency (ER) | payer OTHER ==
[2017-11-21 02:29] VITALS: BP 117/82
--- NOTE | 2017-11-21 02:31 | EDPHY ---
H & P Stated Complaint: Sore throat, cough, generalized body aches, fever Time Seen by Provider: 11/21/17 02:31 HPI/ROS: HPI CHIEF COMPLAINT: Cough, sore throat HISTORY OF PRESENT ILLNESS: Very pleasant 22-year-old male, otherwise healthy, presents emergency room at 2:30 a.m. In the morning with 1 day of sore throat and a cough. Nonproductive. He additionally reports he smokes 2 packs of cigarettes per day. Denies vomiting. Denies chest pain, denies shortness of breath. No productive cough. No pleuritic pain. Could not sleep tonight. Past Medical History: Denies medical history Past Surgical History: Denies surgical history Social History: Smokes 2 packs per day. [employer] student. Denies drugs. Family History: Noncontributory ROS REVIEW OF SYSTEMS: 10 Systems were reviewed and negative with the exception of the elements mentioned in the history of present illness. Exam Constitutional appears well nontoxic stable vital signs, triage nursing summary reviewed, vital signs reviewed, awake/alert. Eyes normal conjunctivae and sclera, EOMI, PERRLA. HENT TMs clear bilaterally, posterior pharynx mildly red, no exudate, uvula midline, no swelling, normal inspection, atraumatic, moist mucus membranes, no epistaxis, neck supple/ no meningismus, no raccoon eyes. Respiratory bronchitic sounding cough on exam, clear to auscultation bilaterally, normal breath sounds, no respiratory distress, no wheezing. Cardiovascular rate normal, regular rhythm, no murmur, no edema, distal pulses normal. Gastrointestinal soft, non-tender, no rebound, no guarding, normal bowel sounds, no distension, no pulsatile mass. Genitourinary no CVA tenderness. Musculoskeletal no midline vertebral tenderness, full range of motion, no calf swelling, no tenderness of extremities, no meningismus, good pulses, neurovascularly intact. Skin pink, warm, & dry, no rash, skin atraumatic. Neurologic awake, alert and oriented x 3, AAOx3, moves all 4 extremities equally, motor intact, sensory intact, CN II-XII intact, normal cerebellar, normal vision, normal speech. Psychiatric normal mood/affect. Heme/Lymph/Immune no lymphadenopathy. Differential Diagnosis: Includes but is not limited to in a particular order viral syndrome, upper respiratory tract infection, viral pharyngitis, strep pharyngitis. Ongoing tobacco abuse. Bronchitis from tobacco. Medical Decision Making: Plan for this patient recommend he refrain from smoking. Highly recommend he stop smoking. Mucinex D congestion. Lots of fluids. Albuterol inhaler. And return precautions. Source: Patient - Personal History Current Tetanus Diphtheria and Acellular Pertussis (TDAP): Yes Tetanus Vaccine Date: < 10 years - Medical/Surgical History Hx Asthma: Yes Hx Chronic Respiratory Disease: No Hx Diabetes: No Hx Cardiac Disease: No Hx Renal Disease: No Hx Cirrhosis: No Hx Alcoholism: No Hx HIV/AIDS: No Hx Splenectomy or Spleen Trauma: No Other PMH: asthma - Social History Smoking Status: Current every day smoker Constitutional: Initial Vital Signs Temperature (C) 38.1 C 11/21/17 02:26 Heart Rate 106 H 11/21/17 02:26 Respiratory Rate 20 11/21/17 02:26 Blood Pressure 117/82 H 11/21/17 02:26 O2 Sat (%) 96 11/21/17 02:26 O2 Delivery Mode Room Air Allergies/Adverse Reactions: No Known Allergies Allergy (Verified 11/21/17 02:26) Home Medications: Medication Instructions Recorded Albuterol [Proventil Inhaler HFA 1 - 2 puffs IH Q4H #1 mdi 11/21/17 (*)] Azithromycin [Zithromax] 250 mg PO DAILY #6 tab 11/21/17 guaiFENesin [Guaifenesin ER] 600 mg PO BID #14 tab.er.12h 11/21/17 Medical Decision Making - Data Points Laboratory Results: 11/21/17 02:35 Group A Strep Screen Pending Departure - Departure Disposition: Home, Routine, Self-Care Clinical Impression: Tobacco abuse, Bronchitis Pharyngitis Qualifiers: Pharyngitis/tonsillitis etiology: unspecified etiology Qualified Code(s): J02.9 - Acute pharyngitis, unspecified Instructions: Pharyngitis (ED), Acute Bronchitis (ED) Additional Instructions: 1. Stop smoking tobacco. 2. Drink lots of fluids. 3. Dcongestion as prescribed. Referrals: NONE *PRIMARY CARE P,. [Primary Care Provider] - As per Instructions Prescriptions: Albuterol [Proventil Inhaler HFA (*)] 1 - 2 puffs IH Q4H #1 mdi Azithromycin [Zithromax] 250 mg PO DAILY #6 tab guaiFENesin [Guaifenesin ER] 600 mg PO BID #14 tab.er.12h
== END 2017-11-21 02:51 | disposition home or self-care (01) ==
DX: J40 Bronchitis, not specified as acute or chronic (principal); J02.9 Acute pharyngitis, unspecified; F17.210 Nicotine dependence, cigarettes, uncomplicated

== ENCOUNTER 2018-01-17 02:25 | Emergency (ER) | payer OTHER ==
[2018-01-17 02:33] VITALS: BP 118/84
--- NOTE | 2018-01-17 02:45 | EDPHY ---
H & P Stated Complaint: throat pain and body aches 2 days worse today Time Seen by Provider: 01/17/18 02:45 HPI/ROS: HPI CHIEF COMPLAINT: Sore throat. Nasal congestion x2 days. HISTORY OF PRESENT ILLNESS: Otherwise healthy 22-year-old male, presents emergency room sore throat nasal congestion. He reports he has had this for 48 hr. No fever. Denies vomiting denies productive cough. Denies chest pain or shortness of breath. Past Medical History: No significant medical history Past Surgical History: No significant surgical history Social History: Smokes tobacco daily. Denies drugs or alcohol. [employer] student. Family History: Noncontributory ROS REVIEW OF SYSTEMS: 10 Systems were reviewed and negative with the exception of the elements mentioned in the history of present illness. Exam Constitutional appears well nontoxic no acute distress triage nursing summary reviewed, vital signs reviewed, awake/alert. Eyes normal conjunctivae and sclera, EOMI, PERRLA. HENT posterior pharynx mildly erythematous, no exudate, nasal passages normal. normal inspection, atraumatic, moist mucus membranes, no epistaxis, neck supple/ no meningismus, no raccoon eyes. Respiratory clear to auscultation bilaterally, normal breath sounds, no respiratory distress, no wheezing. Cardiovascular rate normal, regular rhythm, no murmur, no edema, distal pulses normal. Gastrointestinal soft, non-tender, no rebound, no guarding, normal bowel sounds, no distension, no pulsatile mass. Genitourinary no CVA tenderness. Musculoskeletal no midline vertebral tenderness, full range of motion, no calf swelling, no tenderness of extremities, no meningismus, good pulses, neurovascularly intact. Skin pink, warm, & dry, no rash, skin atraumatic. Neurologic awake, alert and oriented x 3, AAOx3, moves all 4 extremities equally, motor intact, sensory intact, CN II-XII intact, normal cerebellar, normal vision, normal speech. Psychiatric normal mood/affect. Heme/Lymph/Immune no lymphadenopathy. Differential Diagnosis: Includes but is not limited to in a particular order viral syndrome, upper respiratory tract infection, foot viral pharyngitis, strep pharyngitis, bacterial pharyngitis Medical Decision Making: Plan for this patient rapid strep. Re-evaluation: Patient's posterior pharynx is erythematous without exudate no significant swelling no signs of Kofi's or [employer]IOR [employer] SUPPORT [employer]. Has nasal congestion. I do recommend he refrain from smoking. Also recommend Mucinex, also azithromycin. Return precautions discussed with the patient understands return emergency room if develops worsening symptoms including fever, vomiting or not doing well. Source: Patient - Personal History Current Tetanus/Diphtheria Vaccine: Yes Current Tetanus Diphtheria and Acellular Pertussis (TDAP): Yes Tetanus Vaccine Date: < 10 years - Medical/Surgical History Hx Asthma: Yes Hx Chronic Respiratory Disease: No Hx Diabetes: No Hx Cardiac Disease: No Hx Renal Disease: No Hx Cirrhosis: No Hx Alcoholism: No Hx HIV/AIDS: No Hx Splenectomy or Spleen Trauma: No Other PMH: asthma - Social History Smoking Status: Current every day smoker Constitutional: Initial Vital Signs Temperature (C) 37.0 C 01/17/18 02:31 Heart Rate 92 01/17/18 02:31 Respiratory Rate 18 01/17/18 02:31 Blood Pressure 118/84 H 01/17/18 02:31 O2 Sat (%) 96 01/17/18 02:31 O2 Delivery Mode Room Air Allergies/Adverse Reactions: No Known Allergies Allergy (Verified 01/17/18 02:33) Home Medications: Medication Instructions Recorded Albuterol [Proventil Inhaler HFA 1 - 2 puffs IH Q4H 01/17/18 (*)] Azithromycin [Zithromax] 250 mg PO DAILY #6 tab 01/17/18 guaiFENesin [Guaifenesin ER] 600 mg PO BID #14 tab.er.12h 01/17/18 Departure - Departure Disposition: Home, Routine, Self-Care Clinical Impression: Pharyngitis Condition: Good Instructions: Pharyngitis (ED), Strep Throat (ED) Additional Instructions: 1. Drink lots of fluids stay well-hydrated 2. Stop smoking 3. Antibiotics as prescribed 4. D congestion as prescribed Referrals: NONE *PRIMARY CARE P,. [Primary Care Provider] - As per Instructions Prescriptions: Azithromycin [Zithromax] 250 mg PO DAILY #6 tab guaiFENesin [Guaifenesin ER] 600 mg PO BID #14 tab.er.12h
== END 2018-01-17 03:07 | disposition home or self-care (01) ==
DX: J02.9 Acute pharyngitis, unspecified (principal); J45.909 Unspecified asthma, uncomplicated; F17.200 Nicotine dependence, unspecified, uncomplicated

== ENCOUNTER 2018-04-20 03:20 | Emergency (ER) | payer SELFPAY ==
[2018-04-20 03:30] VITALS: BP 101/69
--- NOTE | 2018-04-20 03:35 | EDPHY ---
H & P Stated Complaint: "CAN'T BREATHE" Time Seen by Provider: 04/20/18 03:35 HPI/ROS: HPI CHIEF COMPLAINT: Shortness of breath, cough, smokes tobacco, wheezing HISTORY OF PRESENT ILLNESS: 22-year-old male, smokes 1 pack per day, presents emergency room stating short of breath, intermittent cough and wheezing. Denies any chest pain or chest tightness. He does state recently has been congestion with URI. He denies any fever, denies pleuritic pain. Denies hemoptysis. States he decided come the emergency room due to cough and shortness of breath. He does smoke 1 pack per day. He states he uses a Ventolin inhaler but has not done so in a while. Past Medical History: Asthma, ongoing tobacco use Past Surgical History: No recent surgery Social History: [employer] student, smokes tobacco daily 1 pack per day. Family History: Noncontributory ROS REVIEW OF SYSTEMS: 10 Systems were reviewed and negative with the exception of the elements mentioned in the history of present illness. Exam Constitutional nontoxic no acute distress triage nursing summary reviewed, vital signs reviewed, awake/alert. Vital signs are stable. No hypoxia no distress. Eyes normal conjunctivae and sclera, EOMI, PERRLA. HENT normal inspection, atraumatic, moist mucus membranes, no epistaxis, neck supple/ no meningismus, no raccoon eyes. Respiratory faint wheezing bilaterally,, normal breath sounds, no respiratory distress. Cardiovascular rate normal, regular rhythm, no murmur, no edema, distal pulses normal. Gastrointestinal soft, non-tender, no rebound, no guarding, normal bowel sounds, no distension, no pulsatile mass. Genitourinary no CVA tenderness. Musculoskeletal no midline vertebral tenderness, full range of motion, no calf swelling, no tenderness of extremities, no meningismus, good pulses, neurovascularly intact. Skin pink, warm, & dry, no rash, skin atraumatic. Neurologic awake, alert and oriented x 3, AAOx3, moves all 4 extremities equally, motor intact, sensory intact, CN II-XII intact, normal cerebellar, normal vision, normal speech. Psychiatric normal mood/affect. Heme/Lymph/Immune no lymphadenopathy. Differential Diagnosis: Includes but is not limited to in a particular order bronchitis, reactive airway disease, asthma, tobacco use, pneumonia, viral pneumonia, bacterial pneumonia, pneumothorax Medical Decision Making: Plan for this patient with shortness of breath, intermittent cough, wheezing with ongoing tobacco use will give a DuoNeb breathing treatment, chest x-ray two view to rule out pneumonia and pneumothorax. And re-evaluate. Re-evaluation: Patient re-evaluated 3:50 a.m. Feeling much better after DuoNeb breathing treatment. Patient requesting Ventolin or take-home albuterol inhaler. Which I will provide for him. I have counseled him extensively on smoking sensation I highly encouraged him to stop smoking as he smokes 1 pack per day. I believe this is contributing to his wheezing and shortness of breath. [id number]: I asked the patient to please stay for chest x-ray to make sure his number pneumothorax or pneumonia however he is refusing the chest x-ray is refusing to stay any further in the emergency room. Given this that he does not want a stay and is requesting to leave and decline is stay for observation or further treatments or x-ray or further evaluation he he is leaving against medical advice he understands the risk of doing so he understands the reason for further observation and evaluation he understands the risk of leaving against medical advice including , more fatigue, neurological dysfunction. He understands return emergency room if he changes mind or has further symptoms worsening symptoms. Source: Patient - Personal History Current Tetanus Diphtheria and Acellular Pertussis (TDAP): Unsure Tetanus Vaccine Date: < 10 years - Medical/Surgical History Hx Asthma: Yes Hx Chronic Respiratory Disease: No Hx Diabetes: No Hx Cardiac Disease: No Hx Renal Disease: No Hx Cirrhosis: No Hx Alcoholism: No Hx HIV/AIDS: No Hx Splenectomy or Spleen Trauma: No Other PMH: asthma - Social History Smoking Status: Current every day smoker Constitutional: Initial Vital Signs Temperature (C) 36.6 C 04/20/18 03:28 Heart Rate 78 04/20/18 03:28 Respiratory Rate 16 04/20/18 03:28 Blood Pressure 101/69 04/20/18 03:28 O2 Sat (%) 96 04/20/18 03:28 O2 Delivery Mode Room Air Allergies/Adverse Reactions: No Known Allergies Allergy (Verified 01/17/18 02:33) Home Medications: Medication Instructions Recorded Albuterol [Proventil Inhaler HFA 1 - 2 puffs IH Q4H 01/17/18 (*)] Medical Decision Making - Data Points Medications Given: Discontinued Medications Albuterol Sulfate (Proventil Inh Prepack) 1 mdi TAKEHOME EDNOW ONE Stop: 04/20/18 03:59 Last Admin: 04/20/18 04:02 Dose: 1 mdi Albuterol/Ipratropium (Duoneb) 3 ml IH EDNOW ONE Stop: 04/20/18 03:42 Last Admin: 04/20/18 03:45 Dose: 3 ml Departure - Departure Disposition: Against Medical Advice Clinical Impression: Cough, Bronchitis Condition: Good Instructions: How to Stop Smoking (ED), Acute Bronchitis (ED), Wheezing (ED), How Your Lungs Work (ED) Additional Instructions: 1. I really encouraged you to stop smoking tobacco. Referrals: NONE *PRIMARY CARE P,. [Primary Care Provider] - As per Instructions [facility] [Clinic] - As per Instructions
[2018-04-20] MEDS ORDERED: IPRATROPIUM/ALBUTEROL 3 ML DEYVIAL IH ONE (03:41)
[2018-04-20] MEDS ORDERED: ALBUTEROL INH PREPACK MDI TAKEHOME ONE (03:58)
== END 2018-04-20 04:05 | disposition left against medical advice (07) ==
DX: R05 Cough (principal); F17.210 Nicotine dependence, cigarettes, uncomplicated; J45.909 Unspecified asthma, uncomplicated

== ENCOUNTER 2018-05-03 02:20 | Emergency (ER) | payer OTHER ==
[2018-05-03] MEDS ORDERED: NS 1,000 ML IV ONE ×2 (02:29→04:19)
--- NOTE | 2018-05-03 02:33 | EDPHY ---
H & P Stated Complaint: Unintentional OD of sleeping meds Source: Patient, EMS - Personal History Current Tetanus Diphtheria and Acellular Pertussis (TDAP): Yes Tetanus Vaccine Date: < 10 years - Medical/Surgical History Hx Asthma: Yes Hx Chronic Respiratory Disease: No Hx Diabetes: No Hx Cardiac Disease: No Hx Renal Disease: No Hx Cirrhosis: No Hx Alcoholism: No Hx HIV/AIDS: No Hx Splenectomy or Spleen Trauma: No Other PMH: asthma - Social History Smoking Status: Current every day smoker Time Seen by Provider: 05/03/18 02:30 HPI/ROS: HPI CHIEF COMPLAINT: Lethargy, overdose HISTORY OF PRESENT ILLNESS: 22-year-old male presents emergency room by EMS for potential overdose of his medication. EMS was called to his private residence where he was minimally responsive very lethargic. They had a hard time getting him awake required vigorous sternal rub. He initially had sats of 80%. Presents emergency room is now awake, he states that he is very sleepy. He reports he has been up for approximately 4 days after consuming energy drinks. He states he was trying to get to sleep and he took "two tabs of Panadol" and "two tabs of Orphenadrin" Patient reports he did not do this to hurt himself or kill himself. Patient reports to me that he was having hard time sleeping so took this medication go to sleep. His friends became concerned as he was minimally responsive in his bed room. They did drag him out of bed and started brief episode of CPR it is unclear exactly how long this lasted. Patient does not recall the events. He arrives to ER room 16 at this time 2:30 a.m. Is alert, answering my questions. But sleepy. Will contact poison Control. Past Medical History: Medical history for asthma Past Surgical History: No recent surgical history Social History: [employer] student, smokes tobacco, denies alcohol or other drugs. Family History: Noncontributory ROS REVIEW OF SYSTEMS: 10 Systems were reviewed and negative with the exception of the elements mentioned in the history of present illness. Exam Constitutional sleepy, triage nursing summary reviewed, vital signs reviewed, awake/alert. Eyes normal conjunctivae and sclera, EOMI, PERRLA. HENT normal inspection, atraumatic, moist mucus membranes, no epistaxis, neck supple/ no meningismus, no raccoon eyes. Respiratory clear to auscultation bilaterally, normal breath sounds, no respiratory distress, no wheezing. Cardiovascular rate normal, regular rhythm, no murmur, no edema, distal pulses normal. Gastrointestinal soft, non-tender, no rebound, no guarding, normal bowel sounds, no distension, no pulsatile mass. Genitourinary no CVA tenderness. Musculoskeletal no midline vertebral tenderness, full range of motion, no calf swelling, no tenderness of extremities, no meningismus, good pulses, neurovascularly intact. Skin pink, warm, & dry, no rash, skin atraumatic. Neurologic sleepy, awake, alert and oriented x 3, AAOx3, moves all 4 extremities equally, motor intact, sensory intact, CN II-XII intact, normal cerebellar, normal vision, normal speech. Psychiatric normal mood/affect. Heme/Lymph/Immune no lymphadenopathy. Differential Diagnosis: Includes but is not limited to in a particular order unintentional overdose, muscle relaxant overdose, Benadryl overdose, polysubstance abuse, respiratory failure. Medical Decision Making: Plan for this patient IV establishment IV fluid bolus , EKG, monitor cardiac, chest x-ray, drug screen, alcohol level, contact poison Control. Re-evaluation: 0245: The case number the [id number] Yeny MCWILLIAMS Discussed case with poison Control. Watch for resp depression, bradycardia, supportive care. Watch for seizures, watch for torsades, watch for bradycardia respiratory depression, hypertension anticholinergic syndrome. Monitor for 6-8 hours. Supportive care. Panadol = Tylenol Orphenadrine = Anticholinergic, "Pain medication" EKG interpretation by me on record in [employer] system. Impression time of EKG 2:30 a.m., sinus rhythm rate of 79, no signs of acute ischemia. 0406: Nursing staff notified to me that the patient tried to leave. Patient placed on MIH. Chest x-ray negative for acute cardiopulmonary disease. 0426: Patient re-evaluated this time much improved. Patient is mentating appropriately. He has a least 8 hr of observation due to the medications he took. Watch for [employer]ING [employer] depression, seizures, hypertension, anticholinergic syndrome The patient has been placed on MIH he tried to leave once. It is still unclear at this time if he did this to harm himself or this was accidental. After he is medically cleared will need mental health evaluation. 0427: Patient's friend at bedside who perform CPR states that when this all initially started he was completely unresponsive. Brief episode of CPR he believes less than 2 min. 0702AM: Signed over to Dr. Nunes at 7am. Patient pending Eval. (Jaime Kern) Constitutional: Initial Vital Signs Temperature (C) 37.2 C 05/03/18 02:24 Heart Rate 78 05/03/18 02:24 Respiratory Rate 10 L 05/03/18 02:24 Blood Pressure 134/85 H 05/03/18 02:24 O2 Sat (%) 100 05/03/18 02:24 O2 Delivery Mode Room Air O2 (L/minute) 2 Allergies/Adverse Reactions: No Known Allergies Allergy (Verified 05/03/18 02:23) Home Medications: Medication Instructions Recorded Albuterol [Proventil Inhaler HFA 1 - 2 puffs IH Q4H 01/17/18 (*)] Medical Decision Making - Diagnostics Imaging Results: Imaging Impressions Chest X-Ray 05/03/18 02:31 Impression: No acute cardiopulmonary abnormality. Other Provider: 0825: Assessed patient. He says he took the medication last night to help him sleep and denies any attempt to harm himself. He denies suicidal or homicidal ideation. He would like to return home and contracts for safety. Return precautions discussed. (Ted Nunes) - Data Points Laboratory Results: Laboratory Results 05/03/18 02:35 05/03/18 02:35 05/03/18 05/03/18 05/03/18 06:31 06:15 02:42 WBC RBC Hgb Hct MCV MCH MCHC RDW Plt Count MPV Neut % (Auto) Lymph % (Auto) [place] % (Auto) Eos % (Auto) Baso % (Auto) Nucleat RBC Rel Count Absolute Neuts (auto) Absolute Lymphs (auto) Absolute Monos (auto) Absolute Eos (auto) Absolute Basos (auto) Absolute Nucleated RBC Immature Gran % Immature Gran # Sodium Potassium Chloride Carbon Dioxide Anion Gap BUN Creatinine Estimated GFR Glucose Calcium Total Bilirubin 0.9 mg/dL mg/dL 0.9 mg/dL mg/dL (0.1-1.4) (0.1-1.4) Conjugated Bilirubin 0.3 mg/dL mg/dL 0.4 mg/dL mg/dL (0.0-0.5) (0.0-0.5) Unconjugated Bilirubin 0.6 mg/dL mg/dL 0.5 mg/dL mg/dL (0.0-1.1) (0.0-1.1) AST 20 IU/L IU/L 20 IU/L IU/L (17-59) (17-59) ALT 26 IU/L IU/L 27 IU/L IU/L (21-72) (21-72) Alkaline Phosphatase 58 IU/L IU/L 80 IU/L IU/L (38-126) (38-126) Total Protein 6.3 g/dL g/dL 7.8 g/dL g/dL (6.3-8.2) (6.3-8.2) Albumin 3.6 g/dL g/dL 4.7 g/dL g/dL (3.5-5.0) (3.5-5.0) Salicylates Urine Opiates Screen NEGATIVE (NEGATIVE) Acetaminophen 12 mcg/mL mcg/mL (10-30) Urine Barbiturates NEGATIVE (NEGATIVE) Ur Phencyclidine Scrn NEGATIVE (NEGATIVE) Ur Amphetamine Screen NEGATIVE (NEGATIVE) U Benzodiazepines Scrn NEGATIVE (NEGATIVE) Urine Cocaine Screen NEGATIVE (NEGATIVE) U Marijuana (THC) Screen NEGATIVE (NEGATIVE) Ethyl Alcohol 05/03/18 05/03/18 02:35 02:35 WBC 9.96 10^3/uL H 10^3/uL (3.80-9.50) RBC 5.43 10^6/uL 10^6/uL (4.40-6.38) Hgb 16.9 g/dL g/dL (13.7-17.5) Hct 47.7 % % (40.0-51.0) MCV 87.8 fL fL (81.5-99.8) MCH 31.1 pg pg (27.9-34.1) MCHC 35.4 g/dL g/dL (32.4-36.7) RDW 12.1 % % (11.5-15.2) Plt Count 339 10^3/uL 10^3/uL (150-400) MPV 8.8 fL fL (8.7-11.7) Neut % (Auto) 57.1 % % (39.3-74.2) Lymph % (Auto) 31.6 % % (15.0-45.0) [place] % (Auto) 7.4 % % (4.5-13.0) Eos % (Auto) 3.1 % % (0.6-7.6) Baso % (Auto) 0.6 % % (0.3-1.7) Nucleat RBC Rel Count 0.0 % % (0.0-0.2) Absolute Neuts (auto) 5.68 10^3/uL 10^3/uL (1.70-6.50) Absolute Lymphs (auto) 3.15 10^3/uL H 10^3/uL (1.00-3.00) Absolute Monos (auto) 0.74 10^3/uL 10^3/uL (0.30-0.80) Absolute Eos (auto) 0.31 10^3/uL 10^3/uL (0.03-0.40) Absolute Basos (auto) 0.06 10^3/uL 10^3/uL (0.02-0.10) Absolute Nucleated RBC 0.00 10^3/uL 10^3/uL (0-0.01) Immature Gran % 0.2 % % (0.0-1.1) Immature Gran # 0.02 10^3/uL 10^3/uL (0.00-0.10) Sodium 140 mEq/L mEq/L (135-145) Potassium 3.9 mEq/L mEq/L (3.5-5.2) Chloride 108 mEq/L mEq/L (97-110) Carbon Dioxide 22 mEq/l mEq/l (22-31) Anion Gap 10 mEq/L mEq/L (6-14) BUN 13 mg/dL mg/dL (7-23) Creatinine 0.9 mg/dL mg/dL (0.7-1.3) Estimated GFR > 60 Glucose 99 mg/dL mg/dL (70-100) Calcium 9.8 mg/dL mg/dL (8.5-10.4) Total Bilirubin Conjugated Bilirubin Unconjugated Bilirubin AST ALT Alkaline Phosphatase Total Protein Albumin Salicylates < 1.0 mg/dL L mg/dL (2.0-20.0) Urine Opiates Screen Acetaminophen 27 mcg/mL mcg/mL (10-30) Urine Barbiturates Ur Phencyclidine Scrn Ur Amphetamine Screen U Benzodiazepines Scrn Urine Cocaine Screen U Marijuana (THC) Screen Ethyl Alcohol < 10 mg/dL mg/dL (0-10) Medications Given: Discontinued Medications Sodium Chloride (Ns) 1,000 mls @ 0 mls/hr IV EDNOW ONE; Wide Open PRN Reason: Protocol Stop: 05/03/18 02:30 Last Admin: 05/03/18 02:30 Dose: 1,000 mls Sodium Chloride (Ns) 1,000 mls @ 0 mls/hr IV ONCE ONE PRN Reason: Wide Open Stop: 05/03/18 04:20 Last Admin: 05/03/18 04:29 Dose: 1,000 mls Departure - Departure Disposition: Home, Routine, Self-Care Clinical Impression: Overdose Condition: Good Instructions: Adult Overdose (ED) Additional Instructions: Follow up with resources provided. Return for worsening of condition. Referrals: [facility],. [Clinic] - As per Instructions
[2018-05-03 02:46] LABS: PLATELET COUNT 339 10^3/uL (150-400)
[2018-05-03 08:20] VITALS: BP 104/65
--- NOTE | 2018-05-04 07:34 | CPEKG ---
Test Reason : OPEN Blood Pressure : / mmHG Vent. Rate : 079 BPM Atrial Rate : 078 BPM P-R Int : 118 ms QRS Dur : 091 ms QT Int : 391 ms P-R-T Axes : -32 075 -02 degrees QTc Int : 449 ms Sinus rhythm Confirmed by Jaime Kern ([id number]) on 05/04/2018 7:34:02 AM Referred By: Jaime Kern Confirmed By:Jaime Kern
== END 2018-05-03 08:46 | disposition home or self-care (01) ==
LOC: EDUNIT#
DX: T50.901A Poisoning by unspecified drugs, medicaments and biological substances, accidental (unintentional), initial encounter (principal); E86.9 Volume depletion, unspecified
CPT/HCPCS: 80305; G0480

== ENCOUNTER 2018-05-21 23:24 | Emergency (ER) | payer OTHER ==
--- NOTE | 2018-05-22 00:23 | EDPHY ---
H & P Stated Complaint: cough, runny nose, fatigue x 2 days Time Seen by Provider: 05/21/18 23:39 HPI/ROS: Chief complaint: Cold symptoms History of present illness: This is a 22-year-old male who presents to the emergency department for cold symptoms. Symptoms began over the last 1-2 days. He reports tactile fevers, runny nose, sore throat, mild cough and generalized malaise. Multiple roommates are sick. No report of headache, trouble breathing or rash. - Personal History Current Tetanus/Diphtheria Vaccine: Yes Current Tetanus Diphtheria and Acellular Pertussis (TDAP): Yes Tetanus Vaccine Date: < 10 years - Medical/Surgical History Hx Asthma: Yes Hx Chronic Respiratory Disease: No Hx Diabetes: No Hx Cardiac Disease: No Hx Renal Disease: No Hx Cirrhosis: No Hx Alcoholism: No Hx HIV/AIDS: No Hx Splenectomy or Spleen Trauma: No Other PMH: asthma - Social History Smoking Status: Current every day smoker - Physical Exam Exam: General Appearance: Alert and no distress. Eyes: Pupils equal and round no injection. ENT: Tympanic membranes, external auditory canals, external ears and surrounding soft tissue including over the mastoids are unremarkable. Nasopharynx is injected. There is no rhinorrhea. Oropharynx is mildly injected. There is no edema. There is no exudate. There is no asymmetry. The uvula is midline. No elevation of the tongue. There is no hoarseness, no drooling, no trismus, no stridor. Respiratory: Chest is non tender, lungs are clear to auscultation. Cardiac: regular rate and rhythm Musculoskeletal: Neck is supple and non tender. Extremities have full range of motion and are non tender. Skin: No rashes or lesions. Neurologic: No meningismus. Constitutional: Initial Vital Signs Temperature (C) 36.8 C 05/21/18 23:26 Heart Rate 80 05/21/18 23:26 Respiratory Rate 20 05/21/18 23:26 Blood Pressure 131/64 H 05/21/18 23:26 O2 Sat (%) 96 05/21/18 23:26 O2 Delivery Mode Room Air Allergies/Adverse Reactions: No Known Allergies Allergy (Verified 05/21/18 23:29) Home Medications: Medication Instructions Recorded Albuterol [Proventil Inhaler HFA 1 - 2 puffs IH Q4H 01/17/18 (*)] Amoxicillin Trihydrate [Amoxil] 500 mg PO TID 10 Days cap 05/22/18 Medical Decision Making ED Course/Re-evaluation: Patient seen under the supervision of my secondary supervising physician Dr. Andrea Robins. Patient presents to the emergency department for cold symptoms. He is nontoxic. Strep swab is negative. No evidence of complications. He will be started on amoxicillin. Home care is discussed. Return precautions are given. Patient voiced understanding and agreement with plan. Differential Diagnosis: Included but not limited to URI, pharyngitis, strep pharyngitis, tonsillitis, influenza - Data Points Laboratory Results: 05/21/18 23:37 Nasal Influenza A PCR NEGATIVE FOR FLU A (NEGATIVE) Nasal Influenza B PCR NEGATIVE FOR FLU B (NEGATIVE) Group A Strep Screen POSITIVE H (NEGATIVE) Departure - Departure Disposition: Home, Routine, Self-Care Clinical Impression: Strep pharyngitis Condition: Good Instructions: Strep Throat (ED) Additional Instructions: Follow-up with a primary care doctor for recheck If symptoms worsen or new symptoms develop return to the emergency room for recheck Referrals: NONE *PRIMARY CARE P,. [Primary Care Provider] - As per Instructions [facility],. [Clinic] - As per Instructions Stand Alone Forms: School Excuse Prescriptions: Amoxicillin Trihydrate [Amoxil] 500 mg PO TID 10 Days cap
[2018-05-22 01:18] VITALS: BP 128/67
== END 2018-05-22 01:16 | disposition home or self-care (01) ==
DX: J02.0 Streptococcal pharyngitis (principal); F17.200 Nicotine dependence, unspecified, uncomplicated

== ENCOUNTER 2018-05-23 22:16 | Emergency (ER) | payer OTHER ==
[2018-05-23 22:25] VITALS: BP 116/73
== END 2018-05-23 23:54 | disposition left against medical advice (07) ==
DX: Z53.21 Procedure and treatment not carried out due to patient leaving prior to being seen by health care provider (principal)

== ENCOUNTER 2018-05-26 06:15 | Emergency (ER) | payer OTHER ==
[2018-05-26] MEDS ORDERED: ONDANSETRON 4 MG/2 ML VIAL ONE (06:50)
[2018-05-26] MEDS ORDERED: ONDANSETRON 4 MG/2 ML VIAL IVP ONE (06:54)
[2018-05-26] MEDS ORDERED: NS 1,000 ML IV ONE (06:54)
[2018-05-26 07:03] LABS: PLATELET COUNT 328 10^3/uL (150-400)
[2018-05-26] MEDS ORDERED: KETAMINE 200 MG/20 ML VIAL IVP ONE (07:10)
[2018-05-26] MEDS ORDERED: FAMOTIDINE 20 MG/NACL 50 ML IV ONE (07:16)
--- NOTE | 2018-05-26 07:16 | EDPHY ---
H & P Stated Complaint: middle abd pain Time Seen by Provider: 05/26/18 06:57 HPI/ROS: CHIEF COMPLAINT: Abdominal pain HISTORY OF PRESENT ILLNESS: This is a 22-year-old male in general good health with 3 days of upper abdominal pain. He has been taking Advil 400 mg in the morning in the evening. The pain awakened him at night. It is present almost all of the time and seems to be worsening. He describes it as a "grabbing" sensation. It is worse with movement. He has not noticed any change with food but his appetite has been decreased. He has had nausea but no vomiting. He denies diarrhea. He had a bowel movement this morning. No blood in his stools. No previous similar abdominal pain. He was diagnosed with strep throat 4 days ago. He is completely asymptomatic at this point in time; he did not take the prescribed antibiotics. REVIEW OF SYSTEMS: A ten system review of systems was performed and is negative with the exception of the items mentioned in the HPI. 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 He smokes cigarettes. He does not use alcohol. No illicit drugs. General Appearance: Alert. Vital signs reviewed. Eyes: Pupils equal and round, no conjunctival injection, no discharge. Anicteric. ENT, Mouth: Mucous membranes are moist, no oropharyngeal erythema or edema. Neck: No lymphadenopathy, supple. Respiratory: Lungs are clear to auscultation; no wheezes, rales, or rhonchi. Cardiovascular: Regular rate and rhythm; no murmur, rub, or gallop. Gastrointestinal: Abdomen is soft with tenderness in the midepigastrium and right upper quadrant, no masses or organomegaly, bowel sounds normal. Skin: Warm and dry, no rashes on exposed skin, normal color. Back: Nontender to palpation over the thoracolumbar spine. No CVAT. Extremities: No lower extremity edema, no calf tenderness or swelling. Neurological: Alert and oriented. Moving all four extremities easily and equally. Psychiatric: Normal affect. - Personal History Current Tetanus Diphtheria and Acellular Pertussis (TDAP): Yes Tetanus Vaccine Date: < 10 years - Medical/Surgical History Hx Asthma: Yes Hx Chronic Respiratory Disease: No Hx Diabetes: No Hx Cardiac Disease: No Hx Renal Disease: No Hx Cirrhosis: No Hx Alcoholism: No Hx HIV/AIDS: No Hx Splenectomy or Spleen Trauma: No Other PMH: asthma - Social History Smoking Status: Current every day smoker Constitutional: Initial Vital Signs Temperature (C) 36.8 C 05/26/18 06:19 Heart Rate 80 05/26/18 06:19 Respiratory Rate 16 05/26/18 06:19 Blood Pressure 119/72 05/26/18 06:19 O2 Sat (%) 96 05/26/18 06:19 O2 Delivery Mode Room Air Allergies/Adverse Reactions: No Known Allergies Allergy (Verified 05/27/18 22:31) Home Medications: Medication Instructions Recorded Omeprazole 20 mg PO DAILYAC #30 tablet. 05/26/18 Famotidine [Pepcid] 20 mg PO BID #10 tablet 05/28/18 Peg 3350/Na Sulf,Bicarb,Cl/KCl 1,000 ml PO ONCE #4000 ml 05/28/18 [Golytely (RX)] Medical Decision Making ED Course/Re-evaluation: Upper abdominal pain in healthy 22-year-old male. Patient had initial relief with IV Pepcid and IV ketamine. He also received 1 L IV fluids and 4 mg IV Zofran. He has not had vomiting in the emergency department. However, his pain resurfaced after the above treatments. He was then given Dilaudid 0.5 mg IV. Abdominal exam remains unchanged with upper abdominal tenderness to palpation, no peritoneal signs. Labs reviewed. There is mild elevation in his white blood cell count. Liver functions and lipase are normal. Chemistries normal. Cholecystitis and/or pancreatitis unlikely with these laboratory findings. His pain improved after receiving Dilaudid. He slept a bit. Repeat abdominal exam reveals no tenderness, no guarding. He has not had vomiting or diarrhea in the emergency department. I feel that he can safely return home. He is being started on omeprazole and referred to Gastroenterology. Danger signs reviewed with him. He is advised to discontinue NSAID medications. I suspect gastritis/GERD. Differential Diagnosis: Abdominal pain including but not limited to appendicitis, cholecystitis, gastritis and urinary tract infection. - Data Points Laboratory Results: Laboratory Results 05/26/18 06:47 05/26/18 06:47 Medications Given: Discontinued Medications Hydromorphone HCl (Dilaudid) 0.5 mg IVP EDNOW ONE Stop: 05/26/18 08:33 Last Admin: 05/26/18 08:34 Dose: 0.5 mg Sodium Chloride (Ns) 1,000 mls @ 0 mls/hr IV EDNOW ONE; Wide Open PRN Reason: Protocol Stop: 05/26/18 06:55 Last Admin: 05/26/18 06:54 Dose: 1,000 mls Famotidine/Sodium Chloride (Pepcid 20 Mg (Premix)) 50 mls @ 200 mls/hr IV EDNOW ONE Stop: 05/26/18 07:30 Last Admin: 05/26/18 07:26 Dose: 50 mls Ketamine HCl (Ketamine) 20 mg IVP EDNOW ONE Stop: 05/26/18 07:11 Last Admin: 05/26/18 07:17 Dose: 20 mg Ondansetron HCl (Zofran) 4 mg IVP EDNOW ONE Stop: 05/26/18 06:55 Last Admin: 05/26/18 06:55 Dose: 4 mg Departure - Departure Disposition: Home, Routine, Self-Care Clinical Impression: Abdominal pain Qualifiers: Abdominal location: epigastric Qualified Code(s): R10.13 - Epigastric pain Condition: Good Instructions: Acute Abdominal Pain (ED) Additional Instructions: I recommend that you follow up with a library aide and I am referring you to Dr. Munoz. Call his office to arrange an appointment. It is fine for you to see any of his colleagues. Let the office know that you have been referred by the emergency department. I am starting you on an acid blocking medication. Referrals: [facility],. [Clinic] - As per Instructions Prescriptions: Omeprazole 20 mg PO DAILYAC #30 tablet.
[2018-05-26] MEDS ORDERED: HYDROmorphONE/DILAUDID 2 MG/ML INJ IVP ONE (08:32)
[2018-05-26 10:21] VITALS: BP 98/58
== END 2018-05-26 10:31 | disposition home or self-care (01) ==
DX: R10.13 Epigastric pain (principal); E86.9 Volume depletion, unspecified
CPT/HCPCS: 96365; J1170; J2405

== ENCOUNTER 2018-05-27 22:21 | Emergency (ER) | payer OTHER ==
--- NOTE | 2018-05-27 22:39 | EDPHY ---
H & P Stated Complaint: Upper abd pain, seen x2 days ago, couldn't get into GI doc Time Seen by Provider: 05/27/18 22:35 HPI/ROS: CHIEF COMPLAINT: Continued epigastric pain HISTORY OF PRESENT ILLNESS: 22-year-old male seen emergency department yesterday for complaints of epigastric pain returns to the ER complaining of continued, worsening epigastric pain with radiation to his back. No nausea or vomiting. He has been eating bland food today, bland soup but notes continued pain. No nausea or vomiting. No diarrhea. No chest pain. No dyspnea. No right upper quadrant pain. No melena hematochezia. He has stopped consuming his daily ibuprofen. REVIEW OF SYSTEMS: 10 systems reviewed and negative with the exception of the elements mentioned in the history of present illness PAST MEDICAL & SURGICAL HISTORY: No pertinent medical or surgical history SOCIAL HISTORY: Positive for tobacco abuse PHYSICAL EXAM (Prior to examination, patient consented to physical exam, hands were washed and my usual and customary physical exam procedures followed) 1) GENERAL: Well-developed, well-nourished, alert and oriented. Appears uncomfortable 2) HEAD: Normocephalic, atraumatic 3) HEENT: Pupils equal, round, reactive to light bilaterally. Sclera anicteric. Nasopharynx, oropharynx, clear, no lesions. Moist Mucous membranes. Ears bilaterally with normal tympanic membranes. 4) NECK: Full range of motion, no meningeal signs. 5) LUNGS: Clear auscultation bilaterally, no wheezes, no rhonchi, no retractions. 6) HEART: Regular rate and rhythm, no murmur, no heave, no gallop. 7) ABDOMEN: guarding epigastrium, tender to palpation epigastrium, no mass, negative peritoneal sign, 8) MUSCULOSKELETAL: Moving all extremities, no focal areas of tenderness, no obvious trauma. No peripheral edema or discoloration. 9) BACK: No CVA tenderness, no midline vertebral tenderness, no fluctuance, no step-off, no obvious trauma, no visual or palpable abnormality. 10) SKIN: No rash, no petechiae. 11) Psychiatric: Patient is oriented X 3, there is no agitation. DIFFERENTIAL DIAGNOSIS: In no particular order, including but not limited to biliary colic, cholecystitis, peptic ulcer disease, pancreatitis, and gastroenteritis. This is a partial list of diagnoses considered. These considerations are based on history, physical exam, past history and reassessment. - Personal History Current Tetanus Diphtheria and Acellular Pertussis (TDAP): Yes Tetanus Vaccine Date: < 10 years - Medical/Surgical History Hx Asthma: Yes Hx Chronic Respiratory Disease: No Hx Diabetes: No Hx Cardiac Disease: No Hx Renal Disease: No Hx Cirrhosis: No Hx Alcoholism: No Hx HIV/AIDS: No Hx Splenectomy or Spleen Trauma: No Other PMH: asthma - Social History Smoking Status: Current every day smoker Constitutional: Initial Vital Signs Temperature (C) 36.8 C 05/27/18 22:31 Heart Rate 99 05/27/18 22:31 Respiratory Rate 17 05/27/18 22:31 Blood Pressure 106/64 05/27/18 22:31 O2 Sat (%) 97 05/27/18 22:31 O2 Delivery Mode Room Air Allergies/Adverse Reactions: No Known Allergies Allergy (Verified 05/27/18 22:31) Home Medications: Medication Instructions Recorded Omeprazole 20 mg PO DAILYAC #30 tablet. 05/26/18 Famotidine [Pepcid] 20 mg PO BID #10 tablet 05/28/18 Peg 3350/Na Sulf,Bicarb,Cl/KCl 1,000 ml PO ONCE #4000 ml 05/28/18 [Golytely (RX)] Medical Decision Making ED Course/Re-evaluation: 12:12 a.m.: Patient re-evaluated after IV Haldol. He is sleeping. Easily awoken, states that he is asymptomatic. CT results are pending. 12:19 a.m.: CT imaging interpreted by tele radiology services shows "no acute intra-abdominal or pelvic abnormality, no evidence of acute appendicitis."Plan will be discharge. I think the patient can be discharged. Doubt acute surgical abdominal pathology. Given my usual and customary abdominal precautions instructions. Recommend bland food. Recommend follow up with Gastroenterology. Given prescription for GoLYTELY and Pepcid. He already has a PPI prescription. He feels comfortable being discharged. Care of patient under supervision of secondary supervising physician Dr Ellis with whom I discussed case. - Data Points Laboratory Results: Laboratory Results 05/27/18 22:45 05/27/18 22:45 05/27/18 05/27/18 05/27/18 22:50 22:45 22:45 WBC 10.77 10^3/uL H 10^3/uL (3.80-9.50) RBC 5.29 10^6/uL 10^6/uL (4.40-6.38) Hgb 16.2 g/dL g/dL (13.7-17.5) POC Hgb 16.7 gm/dL gm/dL (13.7-17.5) Hct 46.7 % % (40.0-51.0) POC Hct 49 % % (40-51) MCV 88.3 fL fL (81.5-99.8) MCH 30.6 pg pg (27.9-34.1) MCHC 34.7 g/dL g/dL (32.4-36.7) RDW 12.2 % % (11.5-15.2) Plt Count 372 10^3/uL 10^3/uL (150-400) MPV 9.2 fL fL (8.7-11.7) Neut % (Auto) 59.3 % % (39.3-74.2) Lymph % (Auto) 28.7 % % (15.0-45.0) [place] % (Auto) 8.3 % % (4.5-13.0) Eos % (Auto) 2.8 % % (0.6-7.6) Baso % (Auto) 0.6 % % (0.3-1.7) Nucleat RBC Rel Count 0.0 % % (0.0-0.2) Absolute Neuts (auto) 6.40 10^3/uL 10^3/uL (1.70-6.50) Absolute Lymphs (auto) 3.09 10^3/uL H 10^3/uL (1.00-3.00) Absolute Monos (auto) 0.89 10^3/uL H 10^3/uL (0.30-0.80) Absolute Eos (auto) 0.30 10^3/uL 10^3/uL (0.03-0.40) Absolute Basos (auto) 0.06 10^3/uL 10^3/uL (0.02-0.10) Absolute Nucleated RBC 0.00 10^3/uL 10^3/uL (0-0.01) Immature Gran % 0.3 % % (0.0-1.1) Immature Gran # 0.03 10^3/uL 10^3/uL (0.00-0.10) POC Sodium 141 mEq/L mEq/L (135-145) Sodium 139 mEq/L mEq/L (135-145) POC Potassium 4.0 mEq/L mEq/L (3.3-5.0) Potassium 4.6 mEq/L mEq/L (3.5-5.2) POC Chloride 104 mEq/L mEq/L (97-110) Chloride 105 mEq/L mEq/L (97-110) Carbon Dioxide 25 mEq/l mEq/l (22-31) POC Total CO2 27 mEq/L mEq/L (22-31) Anion Gap 9 mEq/L mEq/L (6-14) POC BUN 8 mg/dL mg/dL (7-23) BUN 10 mg/dL mg/dL (7-23) Creatinine 0.7 mg/dL mg/dL (0.7-1.3) POC Creatinine 0.7 mg/dL mg/dL (0.7-1.3) Estimated GFR > 60 Glucose 89 mg/dL mg/dL (70-100) POC Glucose 94 mg/dL mg/dL (70-100) Calcium 9.7 mg/dL mg/dL (8.5-10.4) Total Bilirubin 0.4 mg/dL mg/dL (0.1-1.4) Conjugated Bilirubin 0.3 mg/dL mg/dL (0.0-0.5) Unconjugated Bilirubin 0.1 mg/dL mg/dL (0.0-1.1) AST 23 IU/L IU/L (17-59) ALT 29 IU/L IU/L (21-72) Alkaline Phosphatase 99 IU/L IU/L (38-126) Total Protein 8.5 g/dL H g/dL (6.3-8.2) Albumin 4.8 g/dL g/dL (3.5-5.0) Lipase 42 IU/L IU/L (23-300) Medications Given: Discontinued Medications Haloperidol Lactate (Haldol Injection) 2.5 mg IVP EDNOW ONE Stop: 05/27/18 23:20 Last Admin: 05/27/18 23:22 Dose: 2.5 mg Sodium Chloride (Ns) 1,000 mls @ 0 mls/hr IV ONCE ONE PRN Reason: Wide Open Stop: 05/27/18 22:42 Last Admin: 05/27/18 22:50 Dose: 1,000 mls Ranitidine HCl (Zantac) 50 mg IVP EDNOW ONE Stop: 05/27/18 22:41 Last Admin: 05/27/18 22:50 Dose: 50 mg Point of Care Test Results: Chemistry 05/27/18 22:50 POC Sodium 141 mEq/L mEq/L (135-145) POC Potassium 4.0 mEq/L mEq/L (3.3-5.0) POC Chloride 104 mEq/L mEq/L (97-110) POC Total CO2 27 mEq/L mEq/L (22-31) POC BUN 8 mg/dL mg/dL (7-23) POC Creatinine 0.7 mg/dL mg/dL (0.7-1.3) POC Glucose 94 mg/dL mg/dL (70-100) ISTAT H&H 05/27/18 22:50 POC Hgb 16.7 gm/dL gm/dL (13.7-17.5) POC Hct 49 % % (40-51) Departure - Departure Disposition: Home, Routine, Self-Care Clinical Impression: Abdominal pain Qualifiers: Abdominal location: epigastric Qualified Code(s): R10.13 - Epigastric pain Constipation Qualifiers: Constipation type: unspecified constipation type Qualified Code(s): K59.00 - Constipation, unspecified Condition: Good Instructions: Constipation (ED), High Fiber Diet (ED) Additional Instructions: Seek immediate medical attention if you develop new or worsening symptoms, if you develop fevers, chills, inability to tolerate oral intake or any other symptoms that concerns you. Referrals: Andrea Munoz MD [Medical Doctor] - 2-3 days, call for appt. Stand Alone Forms: School Excuse Prescriptions: Famotidine [Pepcid] 20 mg PO BID #10 tablet Peg 3350/Na Sulf,Bicarb,Cl/KCl [Golytely (RX)] 1,000 ml PO ONCE #4000 ml
[2018-05-27] MEDS ORDERED: RANITIDINE 50 MG/2 ML VIAL IVP ONE (22:40)
[2018-05-27] MEDS ORDERED: NS 1,000 ML IV ONE (22:41)
[2018-05-27] MEDS ORDERED: IOPAMIDOL (ISOVUE-300) 100 ML BTL ONE (23:09)
[2018-05-27] MEDS ORDERED: HALOPERIDOL LACT 5 MG/ML INJ IVP ONE (23:19)
[2018-05-28 00:06] LABS: PLATELET COUNT 372 10^3/uL (150-400)
[2018-05-28 00:31] VITALS: BP 110/65
== END 2018-05-28 00:31 | disposition home or self-care (01) ==
DX: R10.13 Epigastric pain (principal); K59.00 Constipation, unspecified
CPT/HCPCS: 82435-PO; 82565-PO; 82947-PO; 84132-PO; 84295-PO; 84520-PO; 85014-ER; 96374; J1630; J2780; Q9967

== ENCOUNTER 2018-08-04 02:18 | Emergency (ER) | payer OTHER ==
[2018-08-04] MEDS ORDERED: NS 1,000 ML IV ONE (02:23)
--- NOTE | 2018-08-04 02:26 | EDPHY ---
H & P Stated Complaint: Fall, Left hip pain, ETOH, "hurts to walk" Time Seen by Provider: 08/04/18 02:24 HPI/ROS: HPI CHIEF COMPLAINT: Alcohol intoxication, left hip pain HISTORY OF PRESENT ILLNESS: Patient is a 22-year-old male, he presents emergency room highly intoxicated with alcohol. He went out drinking tonight he states he had 10 to 15 shots of liquor. He then tried to do a front flip tonight landing on his left lateral hip. He also had head strike. Denies LOC. His main complaint is left lateral hip pain. States it hurts when he walks. Denies any chest pain or shortness of breath. He does state he hit his head on the ground. Past Medical History: Denies medical history Past Surgical History: Denies surgical history Social History: Pre alcohol multiple shots 10-15 shots tonight. Family History: Noncontributory ROS REVIEW OF SYSTEMS: Limited due to acute alcohol intoxication Exam Constitutional intoxicated, smells of alcohol, slurring speech triage nursing summary reviewed, vital signs reviewed, awake/alert. Eyes normal conjunctivae and sclera, EOMI, PERRLA. HENT head and neck on exam atraumatic, normal inspection, atraumatic, moist mucus membranes, no epistaxis, neck supple/ no meningismus, no raccoon eyes. Respiratory clear to auscultation bilaterally, normal breath sounds, no respiratory distress, no wheezing. Cardiovascular rate normal, regular rhythm, no murmur, no edema, distal pulses normal. Gastrointestinal soft, non-tender, no rebound, no guarding, normal bowel sounds, no distension, no pulsatile mass. Genitourinary no CVA tenderness. Musculoskeletal left leg, neurovascular intact with good distal pulse, good cap refill, mild tender palpation over the left lateral hip, full range of motion, no obvious deformity. no midline vertebral tenderness, full range of motion, no calf swelling, no tenderness of extremities, no meningismus, good pulses, neurovascularly intact. Skin pink, warm, & dry, no rash, skin atraumatic. Neurologic intoxicated, smells of alcohol alert and oriented x 3, AAOx3. Psychiatric normal mood/affect. Heme/Lymph/Immune no lymphadenopathy. Differential Diagnosis: Includes but is not limited to in a particular order acute alcohol intoxication, dehydration, closed-head injury, intracranial bleed , cervical spine fracture, pelvis fracture, hip fracture, femur fracture, contusion Medical Decision Making: Plan for this patient IV establishment blood draw, alcohol level, x-ray of the left hip, CT scan head without contrast CT cervical spine without contrast for trauma in the setting of acute alcohol intoxication. Re-evaluation: Serum alcohol level 156. Left hip x-ray negative for acute traumatic injury. Visualized by myself. Negative for acute fracture. CT scan head and neck without contrast for trauma in the setting of alcohol intoxication is pending. CT scan head and neck without contrast for trauma in the setting of falling, hitting head on ground with alcohol intoxication shows no evidence of acute intracranial process, and CT cervical spine without contrast shows no evidence of acute fracture or subluxation. These were faxed to me by direct Radiology at 3:28 a.m.. Source: Patient, EMS - Personal History Current Tetanus Diphtheria and Acellular Pertussis (TDAP): Yes Tetanus Vaccine Date: < 10 years - Medical/Surgical History Hx Asthma: Yes Hx Chronic Respiratory Disease: No Hx Diabetes: No Hx Cardiac Disease: No Hx Renal Disease: No Hx Cirrhosis: No Hx Alcoholism: No Hx HIV/AIDS: No Hx Splenectomy or Spleen Trauma: No Other PMH: asthma - Social History Smoking Status: Current every day smoker Constitutional: Initial Vital Signs Temperature (C) 36.9 C 08/04/18 02:21 Heart Rate 94 08/04/18 02:21 Respiratory Rate 18 08/04/18 02:21 Blood Pressure 133/84 H 08/04/18 02:21 O2 Sat (%) 96 08/04/18 02:21 O2 Delivery Mode Room Air Allergies/Adverse Reactions: No Known Allergies Allergy (Verified 08/04/18 02:20) Home Medications: Medication Instructions Recorded Omeprazole 20 mg PO DAILYAC #30 tablet. 05/26/18 Famotidine [Pepcid] 20 mg PO BID #10 tablet 05/28/18 Peg 3350/Na Sulf,Bicarb,Cl/KCl 1,000 ml PO ONCE #4000 ml 05/28/18 [Golytely (RX)] Medical Decision Making - Data Points Laboratory Results: Laboratory Results 08/04/18 02:30 08/04/18 02:30 Medications Given: Discontinued Medications Sodium Chloride (Ns) 1,000 mls @ 0 mls/hr IV EDNOW ONE; Wide Open PRN Reason: Protocol Stop: 08/04/18 02:24 Last Admin: 08/04/18 02:32 Dose: 1,000 mls Departure - Departure Disposition: Home, Routine, Self-Care Clinical Impression: Alcohol intoxication Qualifiers: Complication of substance-induced condition: uncomplicated Qualified Code(s): F10.920 - Alcohol use, unspecified with intoxication, uncomplicated Contusion, hip Qualifiers: Encounter type: initial encounter Laterality: left Qualified Code(s): S70.02XA - Contusion of left hip, initial encounter Condition: Good Instructions: Alcohol Intoxication (ED), Hip Contusion (ED) Referrals: Patient,NotPresent [Unknown] - As per Instructions [facility] Kulkarni,. [Clinic] - As per Instructions
[2018-08-04 02:38] LABS: PLATELET COUNT 318 10^3/uL (150-400)
[2018-08-04 06:43] VITALS: BP 98/70
== END 2018-08-04 06:41 | disposition home or self-care (01) ==
LOC: EDUNIT#
DX: S70.02XA Contusion of left hip, initial encounter (principal); S09.90XA Unspecified injury of head, initial encounter; F10.920 Alcohol use, unspecified with intoxication, uncomplicated; F17.200 Nicotine dependence, unspecified, uncomplicated; E86.9 Volume depletion, unspecified; W22.8XXA Striking against or struck by other objects, initial encounter; Y93.89 Activity, other specified
CPT/HCPCS: G0480